=== PATIENT | female | born 1940 | race Asian ===

== ENCOUNTER 2016-11-07 12:28 | Inpatient (IN) | payer OTHER ==
[~2016-11-07] VITALS: Ht 160 cm; Wt 74.2 kg
[~2016-11-07 12:28] MED LIST: ASCO500 PO; ASPI-825 PO; CALC500T62 PO; DILT240C3 PO; VALS80TA2 PO; ZOLP10 PO
[2016-11-07] MEDS ORDERED: PRAV20TA4 PO (12:40)
[2016-11-07] MEDS ORDERED: VALS160T2 PO (12:40)
[2016-11-07] MEDS ORDERED: OMEG100019 PO (12:40)
[2016-11-07 14:13] LABS: BASOPHILS % (AUTO) 1.2 % (0.0-2.0); EOSINOPHILS % (AUTO) 1.1 % (1.0-6.0); HEMOGLOBIN 14.3 g/dL (12.0-16.0); LYMPHOCYTES # (AUTO) 1.5 K/uL (1.0-4.8); LYMPHOCYTES % (AUTO) 16.2 % (22.0-44.0); MEAN CORPUSCULAR HEMOGLOBIN 29.1 pg (26.0-34.0); MEAN CORPUSCULAR HGB CONC 33.9 G/dL (31.0-37.0); MEAN CORPUSCULAR VOLUME 86 fL (80-100); MONOCYTES % (AUTO) 11.3 % (2.0-9.0); NEUTROPHILS # (AUTO) 6.3 K/uL (1.8-7.7); NEUTROPHILS % (AUTO) 70.2 % (40.0-70.0); PLATELET COUNT (AUTO) 219 K/uL (150-450); RED BLOOD CELL COUNT(AUTO) 4.89 MIL/uL (4.00-5.20); RED CELL DISTRIBUTION WIDTH 14.7 % (11.5-14.5)
[2016-11-07 14:32] LABS: ALANINE AMINOTRANSFERASE 73 U/L (12-78); ALBUMIN 3.5 g/dL (3.4-5.0); ANION GAP 8 mmol/L (8-16); ASPARTATE AMINOTRANSFERASE 48 U/L (15-37); BILIRUBIN,TOTAL 0.5 mg/dL (0.1-1.0); CALCIUM, TOTAL 8.9 mg/dL (8.8-10.5); CARBON DIOXIDE 28 mmol/L (22-29); CHLORIDE 100 mmol/L (98-107); CREATININE 0.87 mg/dL (0.60-1.30); GLOMERULAR FILTR. RATE CALC > 60 mL/min (>60); SODIUM SERUM 136 mmol/L (136-145); UREA NITROGEN, BLOOD 10 mg/dL (7-18)
[2016-11-07 14:34] LABS: POTASSIUM 2.7 mmol/L (3.5-5.1)
[2016-11-07 14:35] LABS: LACTIC ACID 1.9 mmol/L (0.4-2.0)
[2016-11-07 14:36] LABS: B-TYPE NATRIURETIC PEPTIDE 529 pg/mL (0-100)
[2016-11-07 14:39] LABS: APPEARANCE,URINE TURBID (CLEAR); GLUCOSE, URINE (UA) NEGATIVE (NEGATIVE); KETONES,URINE NEGATIVE (NEGATIVE); LEUKOCYTE ESTERASE ,URINE NEGATIVE (NEGATIVE); OCCULT BLOOD,URINE TRACE (NEGATIVE); PROTEIN,URINE NEGATIVE (NEGATIVE)
[2016-11-07 14:42] LABS: AMORPHOUS SEDIMENT,UR Many /LPF (None Seen); RBC,URINE 0-2 /HPF (0-2); SQUAMOUS EPITHELIAL CELL,UR Few /LPF (None Seen); WBC,URINE 0-2 /HPF (0-5)
[2016-11-07] MEDS ORDERED: POTASSIUM CHLORIDE 10% 40 MEQ/30 ML LIQUID UDCUP PO ONE (14:45)
[2016-11-07] MEDS ORDERED: 0.9% SODIUM CHLORIDE 10 ML SYRINGE IVP PRN (14:45)
[2016-11-07] MEDS ORDERED: ONDANSETRON HCL 4 MG/2 ML VIAL IVP PRN (14:45)
[2016-11-07] MEDS ORDERED: ACETAMINOPHEN 325 MG TABLET PO PRN (14:45)
[2016-11-07] MEDS ORDERED: POTASSIUM CHL 10 MEQ/WATER 50 ML IV ONE (14:45)
[2016-11-07] MEDS ORDERED: RIVA20TA PO (14:55)
[2016-11-07] MEDS ORDERED: ASPIRIN 325 MG TABLET PO ONE (15:00)
[2016-11-07] MEDS ORDERED: SODIUM CHLORIDE 0.9% 250 ML IV ONE (15:11)
[2016-11-07 16:36] VITALS: BP 135/75
[2016-11-07 19:26] VITALS: BP 134/67
[2016-11-07] MEDS: ACETAMINOPHEN 325 MG TABLET PO PRN (19:48)
[2016-11-07] MEDS: PRAVASTATIN SODIUM 20 MG TABLET PO SCH (20:48)
[2016-11-07] MEDS: CALCIUM OYSTER SHELL 500 MG TABLET PO SCH (20:48)
[2016-11-07 23:48] VITALS: BP 137/77
[2016-11-08] MEDS: ACETAMINOPHEN 325 MG TABLET PO PRN (04:17)
[2016-11-08 04:21] VITALS: BP 146/79
[2016-11-08 06:31] LABS: BASOPHILS % (AUTO) 0.2 % (0.0-2.0); EOSINOPHILS % (AUTO) 1.5 % (1.0-6.0); HEMATOCRIT 40.9 % (36-46); HEMOGLOBIN 13.8 g/dL (12.0-16.0); LYMPHOCYTES # (AUTO) 1.2 K/uL (1.0-4.8); LYMPHOCYTES % (AUTO) 15.1 % (22.0-44.0); MEAN CORPUSCULAR HEMOGLOBIN 29.1 pg (26.0-34.0); MEAN CORPUSCULAR HGB CONC 33.8 G/dL (31.0-37.0); MEAN CORPUSCULAR VOLUME 86 fL (80-100); MONOCYTES # (AUTO) 0.8 K/uL (0.1-1.0); MONOCYTES % (AUTO) 9.8 % (2.0-9.0); NEUTROPHILS # (AUTO) 5.8 K/uL (1.8-7.7); NEUTROPHILS % (AUTO) 73.4 % (40.0-70.0); PLATELET COUNT (AUTO) 239 K/uL (150-450); RED BLOOD CELL COUNT(AUTO) 4.75 MIL/uL (4.00-5.20); RED CELL DISTRIBUTION WIDTH 15.2 % (11.5-14.5); WHITE BLOOD COUNT (AUTO) 7.9 K/uL (4.5-11.0)
[2016-11-08 06:55] LABS: CALCIUM, TOTAL 8.9 mg/dL (8.8-10.5); CREATININE 0.97 mg/dL (0.60-1.30); THYROID STIMULATING HORMONE 1.58 uIU/mL (0.36-3.74)
[2016-11-08 07:03] VITALS: BP 146/81
[2016-11-08 07:17] LABS: POTASSIUM 2.7 mmol/L (3.5-5.1)
[2016-11-08] MEDS ORDERED: POTASSIUM CHLORIDE 10% 40 MEQ/30 ML LIQUID UDCUP PO PRN ×2 (08:00)
[2016-11-08] MEDS ORDERED: POTASSIUM CHLORIDE 20 MEQ ER TABLET PO PRN ×2 (08:00→08:30)
[2016-11-08] MEDS: PANTOPRAZOLE SODIUM 40 MG DR TABLET PO SCH (08:19)
[2016-11-08] MEDS: DILTIAZEM HCL CD 240 MG ER CAPSULE PO SCH (08:19)
[2016-11-08] MEDS: FISH OIL/OMEGA-3 FATTY ACIDS 500 MG CAPSULE PO SCH (08:19)
[2016-11-08] MEDS: CALCIUM OYSTER SHELL 500 MG TABLET PO SCH ×2 (08:19→21:04)
[2016-11-08] MEDS: VALSARTAN 160 MG TABLET PO SCH (08:19)
[2016-11-08] MEDS ORDERED: POTASSIUM CHL 10 MEQ/WATER 50 ML IV PRN (08:30)
[2016-11-08] MEDS ORDERED: POTASSIUM CHLORIDE 20 MEQ ER TABLET PO ONE (08:30)
[2016-11-08] MEDS ORDERED: ASPIRIN 81 MG CHEWABLE TABLET PO SCH (09:00)
[2016-11-08] MEDS ORDERED: SODIUM CHLORIDE 0.9% 1,000 ML IV ONE (09:05)
[2016-11-08] MEDS: POTASSIUM CHL 10 MEQ/WATER 50 ML IV SCH ×4 (09:15→13:04)
[2016-11-08] MEDS: APIXABAN 5 MG TABLET PO SCH ×2 (09:28→21:04)
[2016-11-08 15:23] VITALS: BP 147/91
[2016-11-08] MEDS ORDERED: RIVAROXABAN 20 MG TABLET PO SCH (18:00)
[2016-11-08 19:34] VITALS: BP 141/78
[2016-11-08 20:21] LABS: MAGNESIUM 1.9 mg/dL (1.80-2.40); POTASSIUM 3.8 mmol/L (3.5-5.1)
[2016-11-08] MEDS: ZOLPIDEM TARTRATE 10 MG TABLET PO SCH (21:04)
[2016-11-08] MEDS: PRAVASTATIN SODIUM 20 MG TABLET PO SCH (21:04)
[2016-11-08 23:35] VITALS: BP 154/88
[2016-11-09 04:28] VITALS: BP 144/91
[2016-11-09 07:32] VITALS: BP 143/102
[2016-11-09] MEDS: CALCIUM OYSTER SHELL 500 MG TABLET PO SCH ×2 (08:47→20:17)
[2016-11-09] MEDS: DILTIAZEM HCL CD 240 MG ER CAPSULE PO SCH (08:47)
[2016-11-09] MEDS: FISH OIL/OMEGA-3 FATTY ACIDS 500 MG CAPSULE PO SCH (08:52)
[2016-11-09] MEDS: PANTOPRAZOLE SODIUM 40 MG DR TABLET PO SCH (08:52)
[2016-11-09] MEDS: APIXABAN 5 MG TABLET PO SCH ×2 (08:53→20:17)
[2016-11-09] MEDS: VALSARTAN 160 MG TABLET PO SCH (08:53)
[2016-11-09 11:07] VITALS: BP 145/85
[2016-11-09] MEDS: ACETAMINOPHEN 325 MG TABLET PO PRN (14:45)
[2016-11-09 15:56] VITALS: BP 145/94
[2016-11-09 19:29] VITALS: BP_SYST 131; BP_SYST 149; BP_DIAS 64; BP_DIAS 89
[2016-11-09] MEDS: ZOLPIDEM TARTRATE 10 MG TABLET PO SCH (20:17)
[2016-11-09] MEDS: PRAVASTATIN SODIUM 20 MG TABLET PO SCH (20:17)
[2016-11-09 23:33] VITALS: BP 121/89
[2016-11-10 05:00] VITALS: BP 135/75
[2016-11-10 07:57] VITALS: BP 134/84
[2016-11-10] MEDS: DILTIAZEM HCL CD 240 MG ER CAPSULE PO SCH (08:32)
[2016-11-10] MEDS: CALCIUM OYSTER SHELL 500 MG TABLET PO SCH ×2 (08:33→22:07)
[2016-11-10] MEDS: PANTOPRAZOLE SODIUM 40 MG DR TABLET PO SCH (08:33)
[2016-11-10] MEDS: APIXABAN 5 MG TABLET PO SCH ×2 (08:33→22:07)
[2016-11-10] MEDS: FISH OIL/OMEGA-3 FATTY ACIDS 500 MG CAPSULE PO SCH (08:33)
[2016-11-10] MEDS: VALSARTAN 160 MG TABLET PO SCH (08:33)
[2016-11-10 10:43] VITALS: BP 127/104
[2016-11-10] MEDS: ACETAMINOPHEN 325 MG TABLET PO PRN ×2 (14:24→22:07)
[2016-11-10 15:10] VITALS: BP 127/73
[2016-11-10 19:56] VITALS: BP 121/73
[2016-11-10] MEDS: ZOLPIDEM TARTRATE 10 MG TABLET PO SCH (22:08)
[2016-11-10] MEDS: PRAVASTATIN SODIUM 20 MG TABLET PO SCH (22:08)
[2016-11-11] VITALS (7 sets, daily range): BP systolic 107–130; BP diastolic 59–86
[2016-11-11] MEDS: FISH OIL/OMEGA-3 FATTY ACIDS 500 MG CAPSULE PO SCH (08:44)
[2016-11-11] MEDS: DILTIAZEM HCL CD 240 MG ER CAPSULE PO SCH (08:44)
[2016-11-11] MEDS: APIXABAN 5 MG TABLET PO SCH ×2 (08:44→20:51)
[2016-11-11] MEDS: PANTOPRAZOLE SODIUM 40 MG DR TABLET PO SCH (08:45)
[2016-11-11] MEDS: CALCIUM OYSTER SHELL 500 MG TABLET PO SCH ×2 (08:45→20:51)
[2016-11-11] MEDS: VALSARTAN 160 MG TABLET PO SCH (08:45)
[2016-11-11] MEDS: ZOLPIDEM TARTRATE 10 MG TABLET PO SCH (20:51)
[2016-11-11] MEDS: PRAVASTATIN SODIUM 20 MG TABLET PO SCH (20:51)
[2016-11-12 03:30] VITALS: BP 136/68
[2016-11-12 07:48] VITALS: BP 120/77
[2016-11-12] MEDS: DILTIAZEM HCL CD 240 MG ER CAPSULE PO SCH (08:05)
[2016-11-12] MEDS: FISH OIL/OMEGA-3 FATTY ACIDS 500 MG CAPSULE PO SCH (08:05)
[2016-11-12] MEDS: APIXABAN 5 MG TABLET PO SCH (08:06)
[2016-11-12] MEDS: CALCIUM OYSTER SHELL 500 MG TABLET PO SCH (08:06)
[2016-11-12] MEDS: PANTOPRAZOLE SODIUM 40 MG DR TABLET PO SCH (08:06)
[2016-11-12] MEDS: VALSARTAN 160 MG TABLET PO SCH (08:06)
[2016-11-12] MEDS ORDERED: MULTIVITAMINS WITH MINERALS, THERAPEUTIC TABLET PO SCH (09:00)
[2016-11-12 11:26] VITALS: BP 103/67
[2016-11-12 15:33] VITALS: BP 123/61
== END 2016-11-12 18:45 | DRG 309 ==
LOC: EMS 12:29 → 5N 15:36 → 6N 11-10 10:15
PROVIDERS: ADMIT Family Medicine; ATTEND Family Medicine
DX: I48.91 Unspecified atrial fibrillation (principal); I50.32 Chronic diastolic (congestive) heart failure; I10 Essential (primary) hypertension; E78.5 Hyperlipidemia, unspecified; I83.90 Asymptomatic varicose veins of unspecified lower extremity; G90.8 Other disorders of autonomic nervous system; E78.00 Pure hypercholesterolemia, unspecified; E87.6 Hypokalemia; I11.0 Hypertensive heart disease with heart failure; I25.10 Atherosclerotic heart disease of native coronary artery without angina pectoris; I50.9 Heart failure, unspecified; Z88.8 Allergy status to other drugs, medicaments and biological substances
CPT/HCPCS: 83605; 83735; 84132; 84443; 87086; 93005; 93306; 96360; 97110; 97116; 97162; 97166; 97530; 97535; 99285; J3480; J7030; J7050

== ENCOUNTER 2019-01-17 07:33 | Emergency (ER) | payer OTHER ==
[~2019-01-17] VITALS: Ht 160 cm; Wt 76.4 kg
[~2019-01-17 07:33] MED LIST changes: -ASCO500 PO; +OMEG-135 PO; +PRAV20TA4 PO; +RIVA20TA PO; +VALS160T2 PO; -VALS80TA2 PO; -ZOLP10 PO
[2019-01-17] MEDS ORDERED: APIX2.5T PO (07:40)
[2019-01-17 07:55] VITALS: BP 138/78
== END 2019-01-17 08:15 | disposition home or self-care (01) ==
LOC: EMS 07:38
DX: K64.4 Residual hemorrhoidal skin tags (principal); I10 Essential (primary) hypertension; E78.00 Pure hypercholesterolemia, unspecified; Z88.8 Allergy status to other drugs, medicaments and biological substances; Z79.82 Long term (current) use of aspirin; Z79.899 Other long term (current) drug therapy

== ENCOUNTER 2022-08-11 10:06 | Emergency (ER) | payer OTHER ==
[~2022-08-11] VITALS: Ht 154.9 cm; Wt 72.7 kg
[~2022-08-11 10:06] MED LIST changes: +APIX2.5T PO; -DILT240C3 PO; +DILT240C98 PO; -RIVA20TA PO
[2022-08-11] MEDS ORDERED: DILTIAZEM PO (10:17)
[2022-08-11] MEDS ORDERED: FURO20 PO (10:17)
[2022-08-11] MEDS ORDERED: APIX5TAB PO (10:17)
[2022-08-11] MEDS ORDERED: POTA-92 PO (10:17)
[2022-08-11] MEDS ORDERED: CHOL500045 PO (10:17)
[2022-08-11] MEDS ORDERED: PRAV20TA4 PO (10:17)
[2022-08-11] MEDS ORDERED: TOPI25 PO (10:17)
[2022-08-11] MEDS ORDERED: PANT-31 PO (10:17)
[2022-08-11] MEDS ORDERED: DONE-51 PO (10:17)
[2022-08-11] MEDS ORDERED: OLMESARTAN PO (10:17)
[2022-08-11] MEDS ORDERED: DOCU-385 PO (10:17)
[2022-08-11] MEDS ORDERED: ASCO500 PO (10:18)
[2022-08-11] MEDS ORDERED: ZINC220T4 PO (10:18)
[2022-08-11 11:15] VITALS: BP 120/72
[2022-08-11] MEDS ORDERED: OLME40TA18 PO (11:38)
[2022-08-11] MEDS ORDERED: BROM3DRO OD (11:38)
[2022-08-11] MEDS ORDERED: MULT-1336 PO (11:38)
[2022-08-11] MEDS ORDERED: [UNRECOGNIZED DRUG - CODE] PO (11:38)
[2022-08-11] MEDS ORDERED: SULFACETAMIDE SODIUM 10% 15 ML OPHTHALMIC SOLUTION OD ONE (11:45)
[2022-08-11] MEDS ORDERED: BACITRACIN/POLYMYXIN B 3.5 GM OPHTHALMIC OINTMENT OD ONE (11:45)
[2022-08-11] MEDS ORDERED: FLUORESCEIN SODIUM 1 MG STRIP ONE (12:12)
[2022-08-11] MEDS ORDERED: NEOMYCIN/BACITRACIN/POLYMYXIN B 3.5 GM OPHTHALMIC OINTMENT OD ONE (12:15)
== END 2022-08-11 14:19 | disposition home or self-care (01) ==
LOC: EMS 10:14
DX: H10.9 Unspecified conjunctivitis (principal); I11.9 Hypertensive heart disease without heart failure; E78.00 Pure hypercholesterolemia, unspecified; E11.9 Type 2 diabetes mellitus without complications; Z98.890 Other specified postprocedural states; Z88.8 Allergy status to other drugs, medicaments and biological substances
CPT/HCPCS: 99283

== ENCOUNTER 2022-08-13 08:37 | Emergency (ER) | payer OTHER ==
[~2022-08-13] VITALS: Ht 152.4 cm; Wt 70.5 kg
[~2022-08-13 08:37] MED LIST changes: -APIX2.5T PO; +APIX5TAB PO; +ASCO500 PO; -ASPI-825 PO; +BROM3DRO OD; -CALC500T62 PO; +CHOL500045 PO; -DILT240C98 PO; +DOCU-385 PO; +DONE-51 PO; +FURO20 PO; +MULT-1336 PO; +OLME40TA18 PO; -OMEG-135 PO; +PANT-31 PO; +POTA-92 PO; +TOPI25 PO; -VALS160T2 PO; +ZINC220T4 PO; +[UNRECOGNIZED DRUG - CODE] PO
[2022-08-13] MEDS ORDERED: IBUP-2492 PO (08:54)
[2022-08-13] MEDS ORDERED: PRED20TA3 PO (08:54)
[2022-08-13] MEDS ORDERED: VALA100026 PO (08:54)
[2022-08-13] MEDS ORDERED: GABA-1181 PO (08:54)
[2022-08-13] MEDS ORDERED: TOPI25CA6 PO (08:54)
[2022-08-13] MEDS ORDERED: ACYCLOVIR 700 MG in DEXTROSE 5%-WATER 100 ML IV ONE (09:30)
[2022-08-13 09:54] LABS: BASOPHILS % (AUTO) 0.4 % (0.0-2.0); EOSINOPHILS % (AUTO) 0 % (1.0-6.0); HEMATOCRIT 42.1 % (36-46); HEMOGLOBIN 14.3 g/dL (12.0-16.0); LYMPHOCYTES # (AUTO) 0.8 K/uL (1.0-4.8); LYMPHOCYTES % (AUTO) 9.5 % (22.0-44.0); MEAN CORPUSCULAR HEMOGLOBIN 30.8 pg (26.0-34.0); MEAN CORPUSCULAR VOLUME 91 fL (80-100); MONOCYTES # (AUTO) 1.1 K/uL (0.1-1.0); MONOCYTES % (AUTO) 12.4 % (2.0-9.0); NEUTROPHILS # (AUTO) 6.7 K/uL (1.8-7.7); NEUTROPHILS % (AUTO) 77.7 % (40.0-70.0); PLATELET COUNT (AUTO) 175 K/uL (150-450); RED BLOOD CELL COUNT(AUTO) 4.64 MIL/uL (4.00-5.20); RED CELL DISTRIBUTION WIDTH 14.3 % (11.5-14.5)
[2022-08-13 10:04] LABS: CALCIUM, TOTAL 9.3 mg/dL (8.8-10.5); CREATININE 1.07 mg/dL (0.60-1.30); POTASSIUM 3.5 mmol/L (3.5-5.1)
[2022-08-13 10:10] LABS: ALBUMIN 3.7 g/dL (3.4-5.0); BILIRUBIN,TOTAL 0.4 mg/dL (0.1-1.0); TOTAL PROTEIN, SERUM 7.7 g/dL (6.4-8.2)
[2022-08-13 11:10] VITALS: BP 118/77
== END 2022-08-13 11:18 | disposition home or self-care (01) ==
LOC: EMS 08:39
DX: B02.39 Other herpes zoster eye disease (principal); E78.00 Pure hypercholesterolemia, unspecified; I10 Essential (primary) hypertension; I51.9 Heart disease, unspecified; Z88.0 Allergy status to penicillin
CPT/HCPCS: 99284; 96365; 80053; 85025; 36415; J0133; J7060

== ENCOUNTER 2022-08-14 13:08 | Emergency (ER) | payer OTHER ==
[~2022-08-14] VITALS: Ht 154.9 cm; Wt 74.1 kg
[~2022-08-14 13:08] MED LIST changes: +GABA-1181 PO; +IBUP-2492 PO; +PRED20TA3 PO; -TOPI25 PO; +TOPI25CA6 PO; +VALA100026 PO
[2022-08-14] MEDS ORDERED: RINGERS SOLUTION,LACTATED 500 ML IV ONE ×2 (14:30→19:00)
[2022-08-14] MEDS ORDERED: WATER IV ONE ×5 (14:45)
[2022-08-14] MEDS ORDERED: DEXTROSE 5% IV ONE ×5 (14:45)
[2022-08-14] MEDS ORDERED: ACYCLOVIR IV ONE ×5 (14:45)
[2022-08-14 15:31] LABS: BASOPHILS % (AUTO) 0.3 % (0.0-2.0); EOSINOPHILS % (AUTO) 0 % (1.0-6.0); HEMOGLOBIN 14.1 g/dL (12.0-16.0); LYMPHOCYTES # (AUTO) 1.1 K/uL (1.0-4.8); LYMPHOCYTES % (AUTO) 9.3 % (22.0-44.0); MEAN CORPUSCULAR HEMOGLOBIN 29.5 pg (26.0-34.0); MEAN CORPUSCULAR HGB CONC 32.1 G/dL (31.0-37.0); MEAN CORPUSCULAR VOLUME 92 fL (80-100); MONOCYTES # (AUTO) 1.1 K/uL (0.1-1.0); MONOCYTES % (AUTO) 9.9 % (2.0-9.0); NEUTROPHILS # (AUTO) 9.2 K/uL (1.8-7.7); NEUTROPHILS % (AUTO) 80.5 % (40.0-70.0); PLATELET COUNT (AUTO) 200 K/uL (150-450); RED BLOOD CELL COUNT(AUTO) 4.78 MIL/uL (4.00-5.20); RED CELL DISTRIBUTION WIDTH 14.5 % (11.5-14.5)
[2022-08-14 15:40] LABS: CALCIUM, TOTAL 9.9 mg/dL (8.8-10.5); CREATININE 3.33 mg/dL (0.60-1.30)
[2022-08-14 15:47] LABS: ALBUMIN 3.4 g/dL (3.4-5.0); BILIRUBIN,TOTAL 0.3 mg/dL (0.1-1.0); MAGNESIUM 2.8 mg/dL (1.80-2.40); TOTAL PROTEIN, SERUM 7.7 g/dL (6.4-8.2)
[2022-08-14 16:50] LABS: COVID AG,FIA SOURCE NASAL SWAB
[2022-08-14 21:00] VITALS: BP 102/59
== END 2022-08-14 21:20 | disposition short-term general hospital (02) ==
LOC: EMS 13:19
DX: B02.30 Zoster ocular disease, unspecified (principal); N17.9 Acute kidney failure, unspecified; E78.00 Pure hypercholesterolemia, unspecified; I10 Essential (primary) hypertension; I51.9 Heart disease, unspecified; E78.5 Hyperlipidemia, unspecified; I48.91 Unspecified atrial fibrillation; Z20.822 Contact with and (suspected) exposure to COVID-19
CPT/HCPCS: 99285; 96365; 70450; 71045; 96361; 87426; 80053; 83690; 83735; 83880; 84100; 84484; 85025; 87040; 36415; 93005; J0133; J7060; J7120

== ENCOUNTER 2023-12-11 16:00 | Emergency (ER) | payer OTHER ==
[~2023-12-11] VITALS: Ht 160 cm; Wt 63.6 kg
[2023-12-11 16:22] VITALS: TEMP 98.4
[2023-12-11] MEDS: ACETAMINOPHEN 325 MG TABLET PO ONE (22:03)
[2023-12-11 22:10] VITALS: BP 116/70; PULSE 61; RESP 16
== END 2023-12-11 23:01 | disposition home or self-care (01) ==
LOC: EMS 16:00
DX: M25.551 Pain in right hip (principal); M25.511 Pain in right shoulder; F03.90 Unspecified dementia, unspecified severity, without behavioral disturbance, psychotic disturbance, mood disturbance, and anxiety; I25.10 Atherosclerotic heart disease of native coronary artery without angina pectoris; I10 Essential (primary) hypertension; E78.00 Pure hypercholesterolemia, unspecified; I48.91 Unspecified atrial fibrillation; Z98.890 Other specified postprocedural states; Z88.8 Allergy status to other drugs, medicaments and biological substances; Z79.899 Other long term (current) drug therapy; Z79.2 Long term (current) use of antibiotics; Z79.01 Long term (current) use of anticoagulants
CPT/HCPCS: 70450; 72125; 73521; 99284